=== PATIENT | female | born 1980 | race Caucasian/White ===

== ENCOUNTER → 2021-12-09 14:07 | Outpatient (BNVA) | payer OTHER, SELFPAY | PROVIDERS: PCP Internal Medicine; Visit Provider Psychiatry & Neurology Neurology | DX: G24.3 Spasmodic torticollis (principal); M47.812 Spondylosis without myelopathy or radiculopathy, cervical region | CPT/HCPCS: 99212 ==

== ENCOUNTER → 2022-03-22 13:30 | Outpatient (BNVA) | payer OTHER, SELFPAY | PROVIDERS: PCP Internal Medicine; Visit Provider Psychiatry & Neurology Neurology | DX: G24.3 Spasmodic torticollis (principal) | CPT/HCPCS: 64616; 99211; J0585 ==

== ENCOUNTER → 2022-07-12 15:38 | Outpatient (BNVA) | payer OTHER, SELFPAY | PROVIDERS: PCP Internal Medicine; Visit Provider Psychiatry & Neurology Neurology | DX: G24.3 Spasmodic torticollis (principal) | CPT/HCPCS: 64616; 99211; J0585 ==

== ENCOUNTER → 2022-10-13 07:54 | Outpatient (BNVA) | payer OTHER, SELFPAY | PROVIDERS: PCP Internal Medicine; Visit Provider Psychiatry & Neurology Neurology | DX: G24.3 Spasmodic torticollis (principal) | CPT/HCPCS: 64616; 99211; J0585 ==

== ENCOUNTER → 2023-01-17 08:03 | Outpatient (BNVA) | payer OTHER, SELFPAY | PROVIDERS: PCP Internal Medicine; Visit Provider Psychiatry & Neurology Neurology | DX: G24.3 Spasmodic torticollis (principal) | CPT/HCPCS: 64616; 99211; J0585 ==

== ENCOUNTER → 2023-05-01 07:31 | Outpatient (BNVA) | payer OTHER, SELFPAY | PROVIDERS: PCP Internal Medicine; Visit Provider Psychiatry & Neurology Neurology | DX: G24.3 Spasmodic torticollis (principal) | CPT/HCPCS: 64616; 99211; J0585 ==

== ENCOUNTER 2023-08-02 07:30 | Outpatient (AMB) | payer OTHER, SELFPAY ==
--- NOTE | 2023-08-02 07:33 | A.OFFVIS_ITS ---
Intake Vital Signs 08/02/23 07:35 Weight 148 lb 6 oz BP 102/72 Blood Pressure Location Rt brachial Position Sitting Pulse 78 Pulse Source Pulse Oximeter Pulse Oximetry (%) 97 Oxygen Delivery Method Room Air Intake Visit Reasons: Botox-confirmed Intake Note: Botox Injection Facility Practice Specialist Required: No Allergies Sulfa (Sulfonamide Antibiotics) Allergy (Intermediate, Verified 08/02/23 07:34) hives Medication List - Last Reconciled 08/02/23 by Leena Noble MD albuterol sulfate 90 mcg/actuation 2 puffs inhalation QID fluticasone propionate 50 mcg/actuation 1 spray intranasal DAILY ibuprofen 600 mg PO Q6H PRN methocarbamol 750 mg PO BID norethindrone (contraceptive) 0.35 mg PO DAILY sertraline (Zoloft) 50 mg PO DAILY HPI HPI Comments History of Present Illness Details 42y/o female comes for treatment of her cervical dystonia ? Side effects including spread of toxin effect, dysphagia, breathing difficulties , bronchitis etc was discussed in detail and the patient agreed to the procedure.An informed consent was obtained ??? Botulinum toxin type A 200units -was diluted with 4 cc of normal saline at a concentration of 25 units in 0.5cc saline. Lot number [id number] exp 01/21 ??? Muscles injected ??? Left Splenius - 25 units each ??? left levator 25 units each Right Trapezius 25 units right levator 50 units Right splenius 75 units ? Total used 200 units PFSH Medical History Bruxism Headache GERD (gastroesophageal reflux disease) Surgical History H/O hand surgery S/P cervical spinal fusion Family History Mother COPD (chronic obstructive pulmonary disease) Depression High blood cholesterol Father No problems noted. Social History Household Members: Spouse Alcohol intake: current Alcohol intake frequency: holidays/special occasions only Patient Tobacco Use Status: Never used Tobacco Physical Exam Vital Signs: Last Vital Signs Pulse 78 08/02/23 07:35 BP 102/72 08/02/23 07:35 Pulse Ox 97 08/02/23 07:35 Oxygen Delivery Method Room Air 08/02/23 07:35 Const Orientation/consciousness: patient oriented x3 HEENT Head: Yes normal to inspection and Yes normocephalic Neck Neck: Yes normal visual inspection and Yes other (left laterocollis, left scalene splenius and trapezius tenderness) Neuro General: patient oriented x3, gait normal, moves all extremities and no focal motor deficits Cranial nerves: Yes CN's II-XII intact bilaterally and Yes Normal facial strength present Office Procedures Botulinum toxin Injection 76135 - Dystonia Procedure code (CPT) selection complete Office Meds onabotulinumtoxinA 200 unit solution for injection Performing Provider: Leena Noble MD [place] [facility] [place] [facility] Administered by: Leena Noble MD on 08/02/23 09:01 Dose Route Admin Location Dispensed Lot Number Expiration Date [facility] Refractory Repairer 200 unit IM 200 units [id number] 12/27/25 3347-5311-42 ALLERGAN/BOTOX Comments: see HPI Assessment & Plan Assessment & Plan (1) Spasmodic torticollis: Code(s): G24.3 - Spasmodic torticollis Plan Patient tolerated the procedure well She will call with any side effects Orders: Orders AMB Botulinum toxin Injection Today G24.3 - Spasmodic torticollis Coding Level of Care Code Est Pt Level 1 (45987) Diagnoses Spasmodic torticollis G24.3 CPT Codes Botox Injection - Botox 4: 27642 - Dystonia ([id number])
[2023-08-02 07:35] VITALS: BP 102/72; PULSE 78; O2SAT 97
== END 2023-08-02 07:58 | disposition home or self-care (01) ==
PROVIDERS: PCP Internal Medicine; Visit Provider Psychiatry & Neurology Neurology
DX: G24.3 Spasmodic torticollis (principal)
CPT/HCPCS: 64616

== ENCOUNTER → 2023-08-02 07:30 | Outpatient (BNVA) | payer OTHER, SELFPAY | PROVIDERS: PCP Internal Medicine; Visit Provider Psychiatry & Neurology Neurology | DX: G24.3 Spasmodic torticollis (principal); G47.63 Sleep related bruxism; R51.9 Headache, unspecified | CPT/HCPCS: 64616; 99211; J0585 ==

== ENCOUNTER 2023-11-06 08:04 | Outpatient (AMB) | payer OTHER, SELFPAY ==
--- NOTE | 2023-11-06 08:13 | A.OFFVIS_ITS ---
Intake Vital Signs 11/06/23 08:15 Height 5 ft 2 in Weight 156 lb BMI 28.5 BP 98/60 Blood Pressure Location Rt brachial Respiration 15 Pulse 77 Pulse Source Pulse Oximeter Pulse Oximetry (%) 98 Oxygen Delivery Method Room Air Intake Visit Reasons: Botox - LVM Intake Note: Pt presents tot he office for Botox injections Hospital Librarian Required: No Allergies Sulfa (Sulfonamide Antibiotics) Allergy (Intermediate, Verified 11/06/23 08:13) hives Medication List - Last Reconciled 11/06/23 by Leena Noble MD albuterol sulfate 90 mcg/actuation 2 puffs inhalation QID fluticasone propionate 50 mcg/actuation 1 spray intranasal DAILY ibuprofen 600 mg PO Q6H PRN methocarbamol 750 mg PO BID norethindrone (contraceptive) 0.35 mg PO DAILY omeprazole 20 mg PO DAILY 30 days sertraline (Zoloft) 50 mg PO DAILY sumatriptan succinate 50 - 100 mg orally at onset of headache, may repeat in 2 hrs PRN; max 2 tabs per day or 4 tabs/week (may take with Ibuprofen) 30 days HPI HPI Comments History of Present Illness Details 43y/o female comes for treatment of her cervical dystonia she reports daily migraines for past 2 weeks and increased neck tightness. she was tried on 5 day prednisone taper and imitrex which helped but the pain recurred once she stopped prednisone. ? Side effects including spread of toxin effect, dysphagia, breathing difficulties , bronchitis etc was discussed in detail and the patient agreed to the procedure.An informed consent was obtained ??? Botulinum toxin type A 200units -was diluted with 4 cc of normal saline at a concentration of 25 units in 0.5cc saline. Lot number [id number] exp 01/21 ??? Muscles injected ??? Left Splenius - 25 units each ??? left levator 25 units each left trapezius 25 units Right Trapezius 25 units right levator 25 units Right splenius 75 units ? Total used 200 units PFSH Medical History Bruxism Headache GERD (gastroesophageal reflux disease) Surgical History H/O hand surgery S/P cervical spinal fusion Family History Mother COPD (chronic obstructive pulmonary disease) Depression High blood cholesterol Father No problems noted. Social History Household Members: Spouse Alcohol intake: current Alcohol intake frequency: holidays/special occasions only Patient Tobacco Use Status: Never used Tobacco Physical Exam Vital Signs: Last Vital Signs Pulse 77 11/06/23 08:15 Resp 15 11/06/23 08:15 BP 98/60 11/06/23 08:15 Pulse Ox 98 11/06/23 08:15 Oxygen Delivery Method Room Air 11/06/23 08:15 BMI result Body Mass Index 28.5 Const Orientation/consciousness: patient oriented x3 HEENT Head: Yes normal to inspection and Yes normocephalic Neck Neck: Yes normal visual inspection and Yes other (left laterocollis, left scalene splenius and trapezius tenderness) Neuro General: patient oriented x3, gait normal, moves all extremities and no focal motor deficits Cranial nerves: Yes CN's II-XII intact bilaterally and Yes Normal facial strength present Office Procedures Botulinum toxin Injection 47913 - Dystonia Procedure code (CPT) selection complete Office Meds onabotulinumtoxinA 200 unit solution for injection Performing Provider: Leena Noble MD Performing Location: [facility] [place] [facility] Administered by: Leena Noble MD on 11/06/23 08:45 Dose Route Admin Location Dispensed Lot Number Expiration Date [facility] [place][NOTE 3] Cotton Converter 200 unit IM 200 units [id number] 02/24/26 8040-5298-25 ALLERGAN/BOTOX Comments: see hpi Assessment & Plan Assessment & Plan (1) Spasmodic torticollis: Code(s): G24.3 - Spasmodic torticollis (2) Migraine with aura, intractable, without status migrainosus: Code(s): G43.119 - Migraine with aura, intractable, without status migrainosus Plan Patient tolerated the procedure well She will call with any side effects I will trial her on 9 day steroid taper Prednisone 20mg 3 tabs qd for 3 days 2 tabs qd for 3 days then 1 tabs qd for 3days discussed side effects continue imitrex 100mg as needed PT for neck Orders: Orders PT Evaluation and Treatment Today G24.3 - Spasmodic torticollis AMB Botulinum toxin Injection Today G24.3 - Spasmodic torticollis Medications: New prednisone 3 tabs qd X3 days then 2 tabs qd X 3 days 1tab qd for 3 days orally daily; 20 tabs 0RF Coding Level of Care Code Est Pt Level 3 (57428) Diagnoses Spasmodic torticollis G24.3 Migraine with aura, intractable, without status migrainosus G43.119 CPT Codes Botox Injection - Botox 4: 65483 - Dystonia ([id number])
[2023-11-06 08:15] VITALS: BP 98/60; PULSE 77; RESP 15; O2SAT 98; BMI 28.5
== END 2023-11-06 08:37 | disposition home or self-care (01) ==
PROVIDERS: PCP Internal Medicine; Visit Provider Psychiatry & Neurology Neurology
DX: G24.3 Spasmodic torticollis (principal); G43.119 Migraine with aura, intractable, without status migrainosus
CPT/HCPCS: 64616; 99213

== ENCOUNTER → 2023-11-06 08:04 | Outpatient (BNVA) | payer OTHER, SELFPAY | PROVIDERS: PCP Internal Medicine; Visit Provider Psychiatry & Neurology Neurology | DX: G24.3 Spasmodic torticollis (principal); G43.119 Migraine with aura, intractable, without status migrainosus | CPT/HCPCS: 64616; 99212; J0585 ==

== ENCOUNTER 2024-02-06 07:38 | Outpatient (AMB) | payer OTHER, SELFPAY ==
[2024-02-06 07:45] VITALS: BP 114/76; PULSE 84; RESP 16; O2SAT 97; BMI 29.9
--- NOTE | 2024-02-06 07:45 | A.OFFVIS_ITS ---
Intake Vital Signs 02/06/24 07:45 Height 5 ft 2 in Weight 163 lb 8 oz BMI 29.9 BP 114/76 Blood Pressure Location Rt brachial Position Sitting Respiration 16 Pulse 84 Pulse Source Pulse Oximeter Pulse Oximetry (%) 97 Oxygen Delivery Method Room Air Intake Visit Reasons: Botox-LVM Intake Note: Pt presents to the office for her Botox injections. Purchasing Department Clerk Required: No Allergies Sulfa (Sulfonamide Antibiotics) Allergy (Intermediate, Verified 02/06/24 07:45) hives Medication List - Last Reconciled 02/06/24 by Leena Noble MD albuterol sulfate 90 mcg/actuation 2 puffs inhalation QID fluticasone propionate 50 mcg/actuation 1 spray intranasal DAILY ibuprofen 600 mg PO Q6H PRN methocarbamol 750 mg PO BID norethindrone (contraceptive) 0.35 mg PO DAILY omeprazole 20 mg PO DAILY 30 days prednisone 3 tabs qd X3 days then 2 tabs qd X 3 days 1tab qd for 3 days orally daily; sertraline (Zoloft) 50 mg PO DAILY sumatriptan succinate 50 - 100 mg orally at onset of headache, may repeat in 2 hrs PRN; max 2 tabs per day or 4 tabs/week (may take with Ibuprofen) 30 days HPI HPI Comments History of Present Illness Details 43y/o female comes for treatment of her cervical dystonia she reports daily migraines for past 2 weeks and increased neck tightness. she was tried on 5 day prednisone taper and imitrex which helped but the pain recurred once she stopped prednisone. ? Side effects including spread of toxin effect, dysphagia, breathing difficulties , bronchitis etc was discussed in detail and the patient agreed to the procedure.An informed consent was obtained ??? Botulinum toxin type A 200units -was diluted with 4 cc of normal saline at a concentration of 25 units in 0.5cc saline. Lot number [id number] exp 05/21 ??? Muscles injected ??? Left Splenius - 25 units each ??? left levator 25 units each left trapezius 25 units Right Trapezius 25 units right levator 25 units Right splenius 75 units ? Total used 200 units PFSH Medical History Bruxism Headache GERD (gastroesophageal reflux disease) Surgical History H/O hand surgery S/P cervical spinal fusion Family History Mother COPD (chronic obstructive pulmonary disease) Depression High blood cholesterol Father No problems noted. Social History Household Members: Spouse Alcohol intake: current Alcohol intake frequency: holidays/special occasions only Patient Tobacco Use Status: Never used Tobacco Physical Exam Vital Signs: Last Vital Signs Pulse 84 02/06/24 07:45 Resp 16 02/06/24 07:45 BP 114/76 02/06/24 07:45 Pulse Ox 97 02/06/24 07:45 Oxygen Delivery Method Room Air 02/06/24 07:45 BMI result Body Mass Index 29.9 Const Orientation/consciousness: patient oriented x3 HEENT Head: Yes normal to inspection and Yes normocephalic Neck Neck: Yes normal visual inspection and Yes other (left laterocollis, left scalene splenius and trapezius tenderness) Neuro General: patient oriented x3, gait normal, moves all extremities and no focal motor deficits Cranial nerves: Yes CN's II-XII intact bilaterally and Yes Normal facial strength present Office Procedures Botulinum toxin Injection 67986 - Dystonia Procedure code (CPT) selection complete Office Meds onabotulinumtoxinA 200 unit solution for injection Performing Provider: Leena Noble MD Performing Location: [facility] Administered by: Leena Noble MD on 02/06/24 08:11 Dose Route Admin Location Dispensed Lot Number Expiration Date [facility] Telemarketing Sales Representative 200 unit IM 200 units [id number] 04/26/26 3789-0933-56 ALLERGAN/BOTOX Comments: see HPI Assessment & Plan Assessment & Plan (1) Spasmodic torticollis: Code(s): G24.3 - Spasmodic torticollis (2) Migraine with aura, intractable, without status migrainosus: Code(s): G43.119 - Migraine with aura, intractable, without status migrainosus Plan Patient tolerated the procedure well She will call with any side effects discussed side effects continue imitrex 100mg as needed PT for neck Orders: Orders AMB Botulinum toxin Injection Today G24.3 - Spasmodic torticollis Coding Level of Care Code Est Pt Level 1 (40771) Diagnoses Spasmodic torticollis G24.3 Migraine with aura, intractable, without status migrainosus G43.119 CPT Codes Botox Injection - Botox 4: 74183 - Dystonia ([id number])
== END 2024-02-06 08:16 | disposition home or self-care (01) ==
PROVIDERS: PCP Internal Medicine; Visit Provider Psychiatry & Neurology Neurology
DX: G24.3 Spasmodic torticollis (principal)
CPT/HCPCS: 64616

== ENCOUNTER → 2024-02-06 07:38 | Outpatient (BNVA) | payer OTHER, SELFPAY | PROVIDERS: PCP Internal Medicine; Visit Provider Psychiatry & Neurology Neurology | DX: G24.3 Spasmodic torticollis (principal); G43.119 Migraine with aura, intractable, without status migrainosus; Z79.899 Other long term (current) drug therapy | CPT/HCPCS: 64616; 99211; J0585 ==

== ENCOUNTER 2024-05-12 13:52 | Outpatient (AMB) | payer OTHER, SELFPAY ==
--- NOTE | 2024-05-12 14:01 | A.OFFVIS_ITS ---
Vital Signs 05/12/24 14:02 Height 5 ft 2 in Weight 153 lb 4 oz BMI 28.0 BP 102/62 Blood Pressure Location Rt brachial Position Sitting Respiration 16 Pulse 92 Pulse Source Pulse Oximeter Pulse Oximetry (%) 97 Oxygen Delivery Method Room Air Intake Visit Reasons: Botox - LVM w/add Intake Note: Pt presents to the office for Botox injections. Advertising Sales Agent Required: No Allergies Sulfa (Sulfonamide Antibiotics) Allergy (Intermediate, Verified 05/12/24 14:02) hives HPI Comments Details: 43y/o female comes for treatment of her cervical dystonia she reports daily migraines for past 2 weeks and increased neck tightness. she was tried on 5 day prednisone taper and imitrex which helped but the pain recurred once she stopped prednisone. ? Side effects including spread of toxin effect, dysphagia, breathing difficulties , bronchitis etc was discussed in detail and the patient agreed to the procedure.An informed consent was obtained ??? Botulinum toxin type A 200units -was diluted with 4 cc of normal saline at a concentration of 25 units in 0.5cc saline. Lot number [id number] exp 05/21 ??? Muscles injected ??? Left Splenius - 25 units each ??? left levator 25 units each left trapezius 25 units Right Trapezius 25 units right levator 25 units Right splenius 75 units ? Total used [address] [facility] Medical History Bruxism Headache GERD (gastroesophageal reflux disease) Surgical History H/O hand surgery S/P cervical spinal fusion Family History Mother COPD (chronic obstructive pulmonary disease) Depression High blood cholesterol Father No problems noted. Social History Household Members: Spouse Alcohol intake: current Alcohol intake frequency: holidays/special occasions only Patient Tobacco Use Status: Never used Tobacco Physical Exam Vital Signs: Last Vital Signs Pulse 92 05/12/24 14:02 Resp 16 05/12/24 14:02 BP 102/62 05/12/24 14:02 Pulse Ox 97 05/12/24 14:02 Oxygen Delivery Method Room Air 05/12/24 14:02 BMI result Body Mass Index 28.0 Const Orientation/consciousness: patient oriented x3 HEENT Head: Yes normal to inspection and Yes normocephalic Neck Neck: Yes normal visual inspection and Yes other (left laterocollis, left scalene splenius and trapezius tenderness) Neuro General: patient oriented x3, gait normal, moves all extremities and no focal motor deficits Cranial nerves: Yes CN's II-XII intact bilaterally and Yes Normal facial strength present Office Procedures Botulinum toxin Injection 76992 - Dystonia Procedure code (CPT) selection complete Office Meds onabotulinumtoxinA 200 unit solution for injection Performing Provider: Leena Noble MD Performing Location: [facility] [place] [facility] Administered by: Leena Noble MD on 05/12/24 14:27 Dose Route Admin Location Dispensed Lot Number Expiration Date [facility] Professor Of Social Work 200 unit IM 200 units [id number] 04/26/26 5415-4899-14 ALLERGAN/BOTOX Comments: see HPI Assessment & Plan Assessment & Plan (1) Spasmodic torticollis: Code(s): G24.3 - Spasmodic torticollis Category: Medical Plan Patient tolerated the procedure well She will call with any side effects WIll refer to pain management for neck pain discussed side effects continue imitrex 100mg as needed Orders: Orders AMB Botulinum toxin Injection Today G24.3 - Spasmodic torticollis Referrals Pain Management Referral G24.3 - Spasmodic torticollis, M47.812 - Spondylosis without myelopathy or radiculopathy, cervical region Medications: New onabotulinumtoxinA 200 units IM ONCE 1 ea 0RF spasmodic torticollis G24.3 - Spasmodic torticollis Coding Level of Care Code Est Pt Level 1 (79387) Diagnoses Spasmodic torticollis G24.3 CPT Codes Botox Injection - Botox 4: 10896 - Dystonia ([id number])
[2024-05-12 14:02] VITALS: BP 102/62; PULSE 92; RESP 16; O2SAT 97; BMI 28.0
== END 2024-05-12 14:19 | disposition home or self-care (01) ==
PROVIDERS: PCP Internal Medicine; Visit Provider Psychiatry & Neurology Neurology
DX: G24.3 Spasmodic torticollis (principal)
CPT/HCPCS: 64616

== ENCOUNTER → 2024-05-12 13:52 | Outpatient (BNVA) | payer OTHER, SELFPAY | PROVIDERS: PCP Internal Medicine; Visit Provider Psychiatry & Neurology Neurology | DX: G24.3 Spasmodic torticollis (principal) | CPT/HCPCS: 64616; 99211; J0585 ==

== ENCOUNTER 2024-08-18 13:12 | Outpatient (AMB) | payer OTHER, SELFPAY ==
--- NOTE | 2024-08-18 13:31 | MHC.OFFVIS ---
Vital Signs 08/18/24 13:35 Height 5 ft 2 in Weight 136 lb 6 oz BMI 24.9 BP 102/68 Blood Pressure Location Rt brachial Position Sitting Respiration 16 Pulse 104 H Pulse Source Pulse Oximeter Pulse Oximetry (%) 99 Oxygen Delivery Method Room Air Intake Visit Reasons: BOTOX Intake Note: Pt presents to the office for Botox injections for spasmodic torticollis. Tarp Repairer Required: No Allergies Sulfa (Sulfonamide Antibiotics) Allergy (Intermediate, Verified 08/18/24 13:33) hives Medication List - Last Reconciled 08/18/24 by Leena Noble MD albuterol sulfate 90 mcg/actuation 2 puffs inhalation QID fluticasone propionate 50 mcg/actuation 1 spray intranasal DAILY ibuprofen 600 mg PO Q6H PRN methocarbamol 750 mg PO BID norethindrone (contraceptive) 0.35 mg PO DAILY omeprazole 20 mg PO DAILY 30 days prednisone 3 tabs qd X3 days then 2 tabs qd X 3 days 1tab qd for 3 days orally daily; sertraline (Zoloft) 50 mg PO DAILY sumatriptan succinate 50 - 100 mg orally at onset of headache, may repeat in 2 hrs PRN; max 2 tabs per day or 4 tabs/week (may take with Ibuprofen) 30 days HPI Comments Details: 44y/o female comes for treatment of her cervical dystonia ? Side effects including spread of toxin effect, dysphagia, breathing difficulties , bronchitis etc was discussed in detail and the patient agreed to the procedure.An informed consent was obtained ??? Botulinum toxin type A 200units -was diluted with 4 cc of normal saline at a concentration of 25 units in 0.5cc saline. Lot number [id number] exp 11/20 ??? Muscles injected ??? Left Splenius - 25 units each ??? left levator 25 units each left trapezius 50units Right Trapezius 25 units right levator 25 units Right splenius 50 units ? Total used 200 units [facility] Medical History Bruxism Headache GERD (gastroesophageal reflux disease) Surgical History H/O hand surgery S/P cervical spinal fusion Family History Mother COPD (chronic obstructive pulmonary disease) Depression High blood cholesterol Father No problems noted. Social History Household Members: Spouse Alcohol intake: current Alcohol intake frequency: holidays/special occasions only Patient Tobacco Use Status: Never used Tobacco Physical Exam Vital Signs: Last Vital Signs Pulse 104 H 08/18/24 13:35 Resp 16 08/18/24 13:35 BP 102/68 08/18/24 13:35 Pulse Ox 99 08/18/24 13:35 Oxygen Delivery Method Room Air 08/18/24 13:35 BMI result Body Mass Index 24.9 Const Orientation/consciousness: patient oriented x3 HEENT Head: Yes normal to inspection and Yes normocephalic Neck Neck: Yes normal visual inspection and Yes other (left laterocollis, left scalene splenius and trapezius tenderness) Neuro General: patient oriented x3, gait normal, moves all extremities and no focal motor deficits Cranial nerves: Yes CN's II-XII intact bilaterally and Yes Normal facial strength present Office Procedures Botulinum toxin Injection 01155 - Dystonia Procedure code (CPT) selection complete Office Meds onabotulinumtoxinA 200 unit solution for injection Performing Provider: Leena Noble MD Performing Location: [facility] – [place] [facility] Administered by: Leena Noble MD on 08/18/24 13:57 Dose Route Admin Location Dispensed Lot Number Expiration Date [facility] Chemical Dependency Therapist 200 unit subcut 200 units [id number] 10/26/26 4669-0018-98 ALLERGAN/BOTOX Comments: see HPI Assessment & Plan Assessment & Plan (1) Spasmodic torticollis: Code(s): G24.3 - Spasmodic torticollis Category: Medical Plan Patient tolerated the procedure well She will call with any side effects WIll refer to pain management for neck pain discussed side effects continue imitrex 100mg as needed Orders: Orders AMB Botulinum toxin Injection Today G24.3 - Spasmodic torticollis Medications: New onabotulinumtoxinA 200 units subcut ONCE 1 ea 0RF Dystonia G24.3 - Spasmodic torticollis Coding Level of Care Code Est Pt Level 1 (25762) Diagnoses Spasmodic torticollis G24.3 CPT Codes Botox Injection - Botox 4: 57182 - Dystonia ([id number])
[2024-08-18 13:35] VITALS: BP 102/68; PULSE 104; RESP 16; O2SAT 99; BMI 24.9
== END 2024-08-18 13:52 | disposition home or self-care (01) ==
PROVIDERS: PCP Internal Medicine; Visit Provider Psychiatry & Neurology Neurology
DX: G24.3 Spasmodic torticollis (principal)
CPT/HCPCS: 64616

== ENCOUNTER → 2024-08-18 13:12 | Outpatient (BNVA) | payer OTHER, SELFPAY | PROVIDERS: PCP Internal Medicine; Visit Provider Psychiatry & Neurology Neurology | DX: G24.3 Spasmodic torticollis (principal) | CPT/HCPCS: 64616; 99211; J0585 ==

== ENCOUNTER 2024-12-02 14:43 | Outpatient (AMB) | payer OTHER, SELFPAY ==
[2024-12-02 14:47] VITALS: BP 96/58; PULSE 98; O2SAT 100; BMI 24.7
--- NOTE | 2024-12-02 14:47 | A.OFFVIS_ITS ---
Vital Signs 12/02/24 14:47 Height 5 ft 2 in Weight 135 lb 4 oz BMI 24.7 BP 96/58 L Blood Pressure Location Rt brachial Position Sitting Pulse 98 Pulse Source Pulse Oximeter Pulse Oximetry (%) 100 Oxygen Delivery Method Room Air Intake Visit Reasons: Botox Intake Note: Patient needs a refill on her methocarbamol 750 mg. Tuber Helper Required: No Accompanied by: Self / Same As Patient Allergies Sulfa (Sulfonamide Antibiotics) Allergy (Intermediate, Verified 12/02/24 14:50) hives Medication List - Last Reconciled 12/02/24 by Leena Noble MD albuterol sulfate 90 mcg/actuation 2 puffs inhalation QID fluticasone propionate 50 mcg/actuation 1 spray intranasal DAILY ibuprofen 600 mg PO Q6H PRN methocarbamol 750 mg PO BID norethindrone (contraceptive) 0.35 mg PO DAILY omeprazole 20 mg PO DAILY 30 days prednisone 3 tabs qd X3 days then 2 tabs qd X 3 days 1tab qd for 3 days orally daily; sertraline (Zoloft) 50 mg PO DAILY sumatriptan succinate 50 - 100 mg orally at onset of headache, may repeat in 2 hrs PRN; max 2 tabs per day or 4 tabs/week (may take with Ibuprofen) 30 days Do you need a note to return to daycare/school/sports/work: No HPI Comments Details: 44y/o female comes for treatment of her cervical dystonia ? Side effects including spread of toxin effect, dysphagia, breathing difficulties , bronchitis etc was discussed in detail and the patient agreed to the procedure.An informed consent was obtained ??? Botulinum toxin type A 300units -was diluted with 4 cc of normal saline at a concentration of 25 units in 0.5cc saline. Lot number [id number] exp 08/21- 200 units Lot number- [id number] exp- 01/2027- 100 units ??? Muscles injected ??? Left Splenius - 25 units each ??? left levator 25 units each left trapezius 50units Right Trapezius 50 units right levator 50 units Right splenius 50 units ? Total used 200 units PFSH Medical History Bruxism Headache GERD (gastroesophageal reflux disease) Surgical History H/O hand surgery S/P cervical spinal fusion Family History Mother COPD (chronic obstructive pulmonary disease) Depression High blood cholesterol Father No problems noted. Social History Household Members: Spouse Alcohol intake: current Alcohol intake frequency: holidays/special occasions only Patient Tobacco Use Status: Never used Tobacco Physical Exam Vital Signs: Last Vital Signs Pulse 98 12/02/24 14:47 BP 96/58 L 12/02/24 14:47 Pulse Ox 100 12/02/24 14:47 Oxygen Delivery Method Room Air 12/02/24 14:47 BMI result Body Mass Index 24.7 Const Orientation/consciousness: patient oriented x3 HEENT Head: Yes normal to inspection and Yes normocephalic Neck Neck: Yes normal visual inspection and Yes other (left laterocollis, left scalene splenius and trapezius tenderness) Neuro General: patient oriented x3, gait normal, moves all extremities and no focal motor deficits Cranial nerves: Yes CN's II-XII intact bilaterally and Yes Normal facial strength present Office Procedures Botulinum toxin Injection 80977 - Dystonia Procedure code (CPT) selection complete Office Meds onabotulinumtoxinA 100 unit solution for injection Performing Provider: Leena Noble MD Performing Location: [facility] Administered by: Leena Noble MD on 12/02/24 15:18 Dose Route Admin Location Dispensed Lot Number Expiration Date [facility] [employer] 100 unit IM 100 units [id number] ALLERGAN/BOTOX Comments: see hpi onabotulinumtoxinA 200 unit solution for injection Performing Provider: Leena Noble MD Performing Location: [facility] Administered by: Leena Noble MD on 12/02/24 15:18 Dose Route Admin Location Dispensed Lot Number Expiration Date [place] [employer] 150 unit IM 200 units [id number] ALLERGAN/BOTOX Comments: see HPI Assessment & Plan Assessment & Plan (1) Spasmodic torticollis: Code(s): G24.3 - Spasmodic torticollis Category: Medical Plan Patient tolerated the procedure well She will call with any side effects discussed side effects continue imitrex 100mg as needed Orders: Orders AMB Botulinum toxin Injection Today G24.3 - Spasmodic torticollis Medications: New onabotulinumtoxinA 200 units IM ONCE 1 ea 0RF torticollis G24.3 - Spasmodic torticollis onabotulinumtoxinA 100 units IM ONCE 1 ea 0RF torticollis G24.3 - Spasmodic torticollis Coding Level of Care Code Est Pt Level 1 (23985) Diagnoses Spasmodic torticollis G24.3 CPT Codes Botox Injection - Botox 4: 86852 - Dystonia ([id number])
== END 2024-12-02 15:29 | disposition home or self-care (01) ==
PROVIDERS: PCP Internal Medicine; Visit Provider Psychiatry & Neurology Neurology
DX: G24.3 Spasmodic torticollis (principal)
CPT/HCPCS: 64616

== ENCOUNTER → 2024-12-02 14:43 | Outpatient (BNVA) | payer OTHER, SELFPAY | PROVIDERS: PCP Internal Medicine; Visit Provider Psychiatry & Neurology Neurology | DX: G24.3 Spasmodic torticollis (principal) | CPT/HCPCS: 64616; 99211; J0585 ==

== ENCOUNTER 2025-03-10 11:50 | Outpatient (AMB) | payer OTHER, SELFPAY ==
--- NOTE | 2025-03-10 11:52 | A.OFFVIS_ITS ---
Vital Signs 03/10/25 11:53 Height 5 ft 2 in Weight 135 lb BMI 24.7 Intake Visit Reasons: BOTOX Intake Note: Patient presents for botox injection. practice supplied Allergies Sulfa (Sulfonamide Antibiotics) Allergy (Intermediate, Verified 03/10/25 11:54) hives HPI Comments Details: 44y/o female comes for treatment of her cervical dystonia ? Side effects including spread of toxin effect, dysphagia, breathing difficulties , bronchitis etc was discussed in detail and the patient agreed to the procedure.An informed consent was obtained ??? Botulinum toxin type A 200units -was diluted with 4 cc of normal saline at a concentration of 25 units in 0.5cc saline. Lot number [id number]- 200 units ??? Muscles injected ??Aurelio? Splenius - 25 units each ??? Aurelio levator 50 units each Aurelio trapezius 25units ? Total used 200 units PFS Medical History Bruxism Headache GERD (gastroesophageal reflux disease) Surgical History H/O hand surgery S/P cervical spinal fusion Family History Mother COPD (chronic obstructive pulmonary disease) Depression High blood cholesterol Father No problems noted. Social History Household Members: Spouse Alcohol intake: current Alcohol intake frequency: holidays/special occasions only Patient Tobacco Use Status: Never used Tobacco Physical Exam Vital Signs: BMI result Body Mass Index 24.7 Const Orientation/consciousness: patient oriented x3 HEENT Head: Yes normal to inspection and Yes normocephalic Neck Neck: Yes normal visual inspection and Yes other (left laterocollis, left scalene splenius and trapezius tenderness) Neuro General: patient oriented x3, gait normal, moves all extremities and no focal m otor deficits Cranial nerves: Yes CN's II-XII intact bilaterally and Yes Normal facial strength present Office Procedures Botulinum toxin Injection 47545 - Migraine Procedure code (CPT) selection complete Office Meds onabotulinumtoxinA 200 unit solution for injection Performing Provider: Leena Noble MD Performing Location: [facility] [place] [facility] Administered by: Leena Noble MD on 03/10/25 12:44 Dose Route Admin Location Dispensed Lot Number Expiration Date [facility] [employer] 200 unit IM 200 units [id number] ALLERGAN/BOTOX Comments: see hpi Assessment & Plan Assessment & Plan (1) Spasmodic torticollis: Code(s): G24.3 - Spasmodic torticollis Category: Medical Plan Patient tolerated the procedure well She will call with any side effects discussed side effects continue imitrex 100mg as needed Orders: Orders PT Evaluation and Treatment Today G24.3 - Spasmodic torticollis AMB Botulinum toxin Injection Today G24.3 - Spasmodic torticollis Medications: New onabotulinumtoxinA 200 units IM ONCE 1 ea 0RF spasmodic torticollis G24.3 - Spasmodic torticollis Coding Level of Care Code Est Pt Level 1 (08940) Diagnoses Spasmodic torticollis G24.3 CPT Codes Botox Injection - Botox 3: 38889 - Migraine ([id number])
[2025-03-10 11:53] VITALS: BMI 24.7
--- OUTSIDE RECORDS SUMMARY | 2025-03-10 14:38 | XMS_ITS | Clinical Summary ---
Author Organization [facility] Address [address] [place] [address] Care Team Providers Care Chief Jailer Name Role Phone Deanne Hart MD Primary Care Provider [phone] Allergies Active Allergy Reactions Criticality Noted Date Comments Sulfa Antibiotics 06/30/2020 Medications Medication Sig Dispensed Refills Start Date End Date Status sertraline (ZOLOFT) 50 MG tablet 0 04/22/2022 Active methocarbamol (ROBAXIN) 750 MG tablet Take 750 mg by mouth 2 (two) times a day. 0 04/27/2022 Active Norlyda 0.35 MG tablet Take 1 tablet by mouth daily. 0 02/27/2022 Active Family History Medical History Relation Name Comments Hyperlipidemia Mother Relation Name Status Comments Mother Social History Tobacco Use Types Packs/Day Years Used Date Smoking Tobacco: Never Smokeless Tobacco: Never Alcohol Use Standard Drinks/Week Comments Yes 3 (1 standard drink = 0.6 oz pur e alcohol) Sex and Gender Information Value Date Recorded Sex Assigned at Not on file Gender Identity Not on file Sexual Orientation Not on file Job Start Date Occupation Industry Not on file Not on file Not on file Last Filed Vital Signs Vital Sign Reading Time Taken Comments Blood Pressure - - Pulse - - Temperature - - Respiratory Rate - - Oxygen Saturation - - Inhaled Oxygen Concentration - - Weight 72.1 kg (159 lb) 05/16/2022 3:37 PM EDT Height 157.5 cm (5' 2 ) 05/16/2022 3:37 PM EDT Body Mass Index 29.08 05/16/2022 3:37 PM EDT Plan of Treatment Health Maintenance Due Date Last Done Comments Hepatitis B Vaccines (1 of 3 - 3-dose series) 1980 Hepatitis C Screening 1980 COVID-19 Vaccine (#1) 02/02/1981 Depression Screening 1992 BMI Counseling 1998 Preventative Health Evaluation 1998 Cervical Cancer Screening (Pap Smear) 2001 DTap / Tdap / Td (2 - Td or Tdap) 04/15/2019 04/15/2009 Influenza Vaccine (#1) 2024 3, 08/16/2010, 12/18/2007 Pneumococcal Vaccine Aged Out No long er eligible based on patient's age to complete this topic RSV Ped < 20 months Aged Out No longe r eligible based on patient's age to complete this topic Care Teams Chief Jailer Relationship Specialty Start Date End Date Deanne Hart MD [address] [phone] PCP - General Internal Medicine 05/08/22
--- OUTSIDE RECORDS SUMMARY | 2025-03-10 14:38 | XMS_ITS ---
Author Name [facility] Organization Unknown Results Test Name/Text Value Interpretation Date Range Source Bacteria Ur Cult SEE NOTE Normal [id number] [facility] History of Medication Use Medication Directions Dispensed Refills Start Date End Date Stat us albuterol (PROVENTIL HFA; VENTOLIN HFA) 108 (90 Base) MCG/ACT inhaler Inhale 2 puffs 4 times daily (every 6 hours) as needed for wheezing. 11/06/2022 active nitrofurantoin monohydrate (MACROBID) 100 MG capsule Take 1 capsule (100 mg total) by mouth 2 (two) times a day with meals. Dispense MACROBID. 11/14/2024 11/20/2024 active sertraline (ZOLOFT) 50 MG tablet 09/10/2022 active Problems Problem Status Onset Date Problem Type Date of Resoluti on Source Dysuria active EncounterDiagnosisAct [facility] Acute cystitis without hematuria [facility] En[facility] Encounter Type Encounter Reason Primary Diagnosis Location Date Ambulatory Dysuria Dysuria [facility] 11/14/2024 Ambulatory Acute pharyngiti s, unspecified [facility] 06/10/2023 Ambulatory Influenza due to unidentified influenza virus with other respiratory manifestations [facility] 11/06/2022 Care Team Organization Name Specialty Phone Email Start Date End Da te Pulsar Joan Hart Primary [facility] 06/10/2023 3 P[facility] JOAN HART Primary Care 06/10/2023 5 Pulsar NO PCP Primary Care 11/06/2022 11/06/2022 [facility] PCP,No Primary Care 11/06/2022 02/11/2025
--- OUTSIDE RECORDS SUMMARY | 2025-03-10 14:38 | XMS_ITS | Clinical Summary ---
Author Organization [facility] Address [address] [place] [address] Care Team Providers Care Training Officer Name Role Phone Deanne Hart MD Primary Care Provider [phone] Allergies Active Allergy Reactions Criticality Noted Date Comments Prednisone Myalgia/Myositis/Art hralg ia/Arthritis Medium 02/18/2015 Sulfa Antibiotics Hives Medium 06/30/2020 Sulfamethoxazole-Trimethopri m Hives High 01/21/2013 Medications Medication Sig Dispensed Refills Start Date End Date Status sertraline (ZOLOFT) 50 MG tablet 09/10/2022 Active norethindrone (MICRONOR) 0.35 MG tablet Take 1 tablet by mouth daily. 08/21/2022 Active albuterol (PROVENTIL HFA; VENTOLIN HFA) 108 (90 Base) MCG/ACT inhalerIndications:Inf luenza Inhale 2 puffs 4 times daily (every 6 hours) as needed for wheezing. 1 each 11/06/2022 Active Active Problems No known active problems Social History Tobacco Use Types Packs/Day Years Used Date Smoking Tobacco: Never Assessed Sex and Gender Information Value Date Recorded Sex Assigned at Female 06/10/2023 3:44 PM EDT Gender Identity Female 06/10/2023 3:44 PM EDT Sexual Orientation Heterosexual (straight) 06/10 3:44 PM EDT Last Filed Vital Signs Vital Sign Reading Time Taken Comments Blood Pressure 115/84 11/14/2024 4:00 PM EST Pulse 86 11/14/2024 4:00 PM EST Temperature 36.8 ??C (98.2 ??F) 11/14/2024 4:00 PM ES T Respiratory Rate 18 11/14/2024 4:00 PM EST Oxygen Saturation 96% 11/14/2024 4:00 PM EST Inhaled Oxygen Concentration - - Weight 59 kg (130 lb) 11/14/2024 4:00 PM EST Height 157.5 cm (5' 2 ) 11/14/2024 4:00 PM EST Body Mass Index 23.78 11/14/2024 4:00 PM EST Plan of Treatment Health Maintenance Due Date Last Done Comments Hepatitis C Virus Screening 1980 HIV Screening 1993 DTaP/Tdap/Td Vaccines (1 - Tdap) 1999 Hepatitis B Vaccines (1 of 3 - 19+ 3-dose series) 1999 Pap Smear (Ages 21-65) 2001 Mammogram 2020 Influenza Vaccine 06/26/2024 09/12/2022, , 09/03/2020, Additional history exists COVID-19 Vaccine (2023- season) 2024 HPV Vaccines Aged Out No longer eligi ble based on patient's age to complete this topic Pneumococcal Vaccine: Pediatric (0-5 Years) and At-Risk Patients (6 to 49 Years) Aged Out No longer eligible based on patient's age to complete this topic Care Teams Training Officer Relationship Specialty Start Date End Date Deanne Hart MD [address] [place] [id number] PCP - General 05/26/23
--- OUTSIDE RECORDS SUMMARY | 2025-03-10 14:38 | XMS_ITS | Clinical Summary ---
Author Organization 175 [facility] Address [address] [place] [address] Phone Care Team Providers Care Air Traffic Control Equipment Repairer Name Role Phone Deanne Hart MD Primary Care Provider [phone] Allergies Active Allergy Reactions Criticality Noted Date Comments Prednisone Pain Medium 02/18/2015 Sulfa (Sulfonamide Antibiotics) 08/03/2020 Sulfamethoxazole-Trimethoprim Hives High 2012 Medications methocarbamoL (ROBAXIN) 750 mg tablet Take 1 Tablet by mouth at bedtime as needed (muscle spasms). 2 Active ibuprofen (ADVIL,MOTRIN) 800 mg tablet Take 1 Tablet by mouth every 8 hours as needed for Pain (Take with food.) for up to 30 days. 3 Active fluticasone propionate (FLONASE) 50 mcg/actuation nasal spray SPRAY ONCE IN EACH NOSTRIL DAILY 5 Active albuterol HFA (PROAIR HFA ; PROVENTIL HFA ; VENTOLIN HFA) 90 mcg/actuation inhaler Inhale 2 Puffs into the lungs every 4 hours as needed for Cough or Wheezing. 3 Active psyllium (METAMUCIL) 3.4 gram packetIndications: constipation,irrit able bowel syndrome Take 1 packet by mouth 1 (one) time each day. 30 packet 4 Active senna 8.6 mg tabletIndications: Slow transit constipation Take 1 tablet (8.6 mg total) by mouth 1 (one) time each day. 30 each 11 4 10/13/20 25 Active norethindrone (Chelsey) 0.35 mg tabletIndications: Oral contraceptive use Take 1 tablet (0.35 mg total) by mouth 1 (one) time each day. 84 tablet 3 4 Active gabapentin (NEURONTIN) 100 mg capsuleIndications :Iliopsoas bursitis of right hip Take 1 capsule (100 mg total) by mouth at bedtime as needed (pain). 30 each 3 4 Active Active Problems Problem Noted Date Diagnosed Date Rupture of ulnar collateral ligament of thumb, right, initial encounter 02/06/2023 Attention deficit hyperactivity disorder (ADHD) 08/28/2022 Snoring 12/09/2021 Overview (09/01/2024): 11/2021 Home Sleep Study did not reveal sleep apnea or nocturnal hypoxia. Sacroiliitis ([facility] V24) 10/14/2020 Iliopsoas bursitis of right hip 06/30/2020 Degenerative joint disease of cervical spine External hemorrhoids 03/20/2016 Anxiety 02/14/2014 Chronic neck pain 12/05/2013 Herniated cervical intervertebral disc 0 Overview (09/01/2024): MRI 05/04: Bulging of the C4-5 disc. Bulging of C5-6 disc with tiny central and left lateral herniations of the disc. Postsurgical changes at the C6-7 level. Esophageal reflux 04/02/2007 Asthma 2006 Allergic rhinitis 2006 Immunizations Name Administration Dates Next Due H1N1 Inj Preservative Free 02/07/2010 HPV, Quadrivalent 07/23/2007,05/16/2007 Influenza trivalent, with pr eservative (Fluzone; Afluria) 6mo and older 08/18/2013,08/16/2010,12/18/2007 Measles 01/28/2009 Mumps 01/28/2009 Rubella 01/28/2009 Td Tetanus diptheria (Tdvax) 7yo and older 05/26 Tdap Tetanus diptheria acell ular pertussis (Boostrix; Adacel) 7yo and older 04/15/2009 Surgical History Surgery Date Site/Laterality Comments CERVICAL LAMINECTOMY 2007 PROCEDURE: HISTORICAL CERV LAMINECTOMY; COMMENT: C6C7 Medical History Medical History Date Comments Esophageal reflux 04/02/2007 DX:Esophageal reflux Allergic rhinitis 2006 DX:Allergic rh initis Asthma 2006 DX:Asthma History of abnormal cervical Pap smear 02/17/2010 DX:History of abnormal cervical Pap smear; COMMENT: 2012 no hpv; 02/02 with HPV Herniated cervical intervertebral disc 08/18/2010 DX:Herniated cervical intervertebral disc; COMMENT: MRI 05/04: Bulging of the C4-5 disc. Bulging of C5-6 disc with tiny central and left lateral herniations of the disc. Postsurgical changes at the C6-7 level. External hemorrhoids 03/20/2016 DX:External hemorrhoids Degenerative joint disease o f cervical spine 03/20/2016 DX:Degenerative joint diseas e of cervical spine Chronic neck pain 12/05/2013 DX:Chronic nec k pain Anxiety 02/14/2014 DX:Anxiety Family History Medical History Relation Name Comments Multiple sclerosis Aunt 1 maternal Suicide Attempts Father Diabetes Maternal Grandfather NC Hypertension Mother MVR, stroke Arthritis Paternal Grandmother Rheum arthritis Paternal Grandmother Colon cancer Neg Hx Ovarian cancer Neg Hx Uterine cancer Neg Hx Relation Name Status Comments Aunt 1 Aunt 2 Brother Alive Father Maternal Grandfather Maternal Grandmother Mother Alive Paternal Grandfather Paternal Grandmother Sister Alive Social History Tobacco Use Types Packs/Day Years Used Date Smoking Tobacco: Never Smokeless Tobacco: Never Alcohol Use Standard Drinks/Week Comments Yes 3 (1 standard drink = 0.6 oz pur e alcohol) Comments Unknown Sex and Gender Information Value Date Recorded Sex Assigned at Not on file Legal Sex Female 11:51 PM EST Gender Identity Not on file Sexual Orientation Not on file Obstetrics History Last Filed Vital Signs Vital Sign Reading Time Taken Comments Blood Pressure 118/68 10/13/2024 1:41 PM EST Pulse 94 10/13/2024 1:41 PM EST Temperature 36.6 ??C (97.8 ??F) 10/13/2024 1:41 PM ES T Respiratory Rate - - Oxygen Saturation 97% 10/13/2024 1:41 PM EST Inhaled Oxygen Concentration - - Weight 59.1 kg (130 lb 6.4 oz) 10/13/2024 1:41 P M EST Height 157.5 cm (5' 2 ) 10/13/2024 1:41 PM EST Body Mass Index 23.85 10/13/2024 1:41 PM EST Plan of Treatment Health Maintenance Due Date Last Done Comments Hepatitis B Vaccines (1 of 3 - 19+ 3-dose series) 1999 Pneumococcal Vaccine: Pediatrics (0 to 5 Years) and At-Risk Patients (6 to 64 Years) (1 of 2 - PCV) 1999 HPV Vaccines (3 - 3-dose series) 11/15/2007 07/23/2007, 05/16/2007 DTaP,Tdap,and Td Vaccines (3 - Td or Tdap) 04/15/2019 04/15/2009, 05/26/2000 Depression Screening 10/29/2022 HIV Screening 10/29/2022 Hepatitis C Screening 10/29/2022 Social Influencers of Health Screening 10/29/2022 COVID-19 Vaccine ( season) 2024 09/30/2021, 12/13/2020, 11/22/2020 Influenza Vaccine (Season Ended) 2025 08/18/2013, 08/16/2010, 02/07/2010, Additional history exists Breast Cancer Screening 01/23/2026 01/23/2024, 09/27 Cervical Cancer Screening: HPV 10/24/2028 10/24/2023 Cholesterol Screening (Lipid Panel) 10/14/2029 10/14/2024, 09/15/2021 HIB Vaccines Aged Out No longer eligi ble based on patient's age to complete this topic Hepatitis A Vaccines Aged Out No long er eligible based on patient's age to complete this topic IPV Vaccines Aged Out No longer eligi ble based on patient's age to complete this topic MMR Vaccines Aged Out No longer eligi ble based on patient's age to complete this topic Meningococcal ACWY Vaccine Aged Out N o longer eligible based on patient's age to complete this topic Meningococcal B Vaccine Aged Out No l onger eligible based on patient's age to complete this topic RSV Immunization Patients Under 20 months Aged Out No longer eligible based on patient's age to complete this topic Varicella Vaccines Aged Out No longer eligible based on patient's age to complete this topic Procedures Procedure Name Priority Date/Time Associated Diagnosis Comments LIPID PANEL WITH REFLEX TO DIRECT LDL Routine 10/14/2024 9:44 AM EST Routine adult health maintenance [facility] SCREENING DIGITAL Routine 01/23/2024 9:21 AM EST Encounter for screening mammogram for malignant neoplasm of breast HPV Routine 10/24/2023 from Last 3 Months or Most Recently Relevant to Health Maintenance Results * (ABNORMAL) Lipid panel with reflex to direct LDL (10/14/2024 9:44 AM EST) Cholesterol 184 0 - 200 mg/dL LAB CHEMISTRY METHOD 10/14/2024 11:19 AM EST [facility] Triglycerides 27 0 - 150 mg/dL LAB CHEMISTRY METHOD 10/14/2024 11:19 AM [facility] HDL 65 >=40 mg/dL LAB CHEMISTRY METHOD 10/14/2024 11:19 AM EST [facility] LDL Calculated 114(H) 0 - 100 mg/dL LAB CHEMISTRY METHOD 10/14/2024 11:19 AM EST [facility] VLDL Cholesterol Compa 5.4 mg/dL LAB CHEMISTRY METHOD 10/14/2024 11:19 AM [facility] Non HDL Chol. (LDL+VLDL) 119 <145 mg/dL LAB CHEMISTRY METHOD 10/14/2024 11:19 AM EST [facility] Chol/HDL Ratio 2.8 0.0 - 4.4 LAB CHEMISTRY METHOD 10/14/2024 11:19 AM EST [facility] Blood Venous blood specimen / Unknown Venipuncture / Unknown 10/14/2024 9:44 AM EST 10/14/2024 10:09 AM EST us Yudy Gordon NP LAB BLOOD ORDERABLES Final Resul t [facility] [address] [place] [address], [place] [phone] * [facility] SCREENING DIGITAL (01/23/2024 9:21 AM EST) Anatomical Region Laterality Modality Mammography 01/23/2024 8:15 AM EST Narrative 01/23/2024 9:21 AM EST [facility] Diagnostic Imaging Department [address] [place] [id number] Patient: ??WENDY GUZMÁN ?/Age/Sex: 1980 - Unit#: ??[id number] ? Location/Status: ??SPDIMAM/REG CLI ? Mnemonic/Ordering Site: ??DIGSC/SPMAM Ordering Physician: ??DEANNE HART MD [facility] Screening Digital - 01/23/24832 Report Status:Signed EXAM: [facility] Screening Digital EXAM DATE AND TIME: 01/23/2024 8:34 AM HISTORY: ??Annual screening COMPARISON: ??10/05/2022, 09/27/2022 TECHNIQUE: Bilateral digital breast tomosynthesis was performed in the CC and MLO projections. Computer aided detection with expressor software 3D 3.1 was employed. TISSUE DENSITY: b. There are scattered areas of fibroglandular density. FINDINGS: No suspicious masses, grouped microcalcifications, or areas of architectural distortion are seen. The skin and vascularity are unremarkable. IMPRESSION: Stable mammographic appearance of the breasts. ??No evidence of malignancy is seen. A negative mammogram in the presence of a clinically suspicious palpable abnormality does not preclude the possibility of malignancy or alter the indications for biopsy. BI-RADS: ??Category 1: Negative RECOMMENDATION(S): 1: Routine screening mammogram BILATERAL in 1 year. 3341F, 7081F Dictating Physician: ??LINNETTE ENAMORADO MD Electronically Signed by: ??LINNETTE ENAMORADO MD Dic Date/Time: ??01/23/24919 Sign date/Time: ??01/23/24920 Procedure Note Linnette Enamorado MD - 07/14/2024 [facility] Diagnostic Imaging Department [address] [place] [address] Patient: WENDY GUZMÁN Cyndi /Age/Sex: 1980 - 43 - F Unit#: [id number] [facility]onic/Ordering Site: [facility] Ordering Physician: DEANNE HART MD [facility] Screening Digital - 01/23/24 - 0833 Report Status:Signed EXAM: [facility] Screening Digital EXAM DATE AND TIME: 01/23/2024 8:34 AM HISTORY: Annual screening COMPARISON: 10/05/2022, 09/27/2022 TECHNIQUE: Bilateral digital breast tomosynthesis was performed in the CCand MLO projections. Computer aided detection with [employer]D Optensity 3D 3.1was employed. TISSUE DENSITY: b. There are scattered areas of fibroglandular density. FINDINGS: No suspicious masses, grouped microcalcifications, or areas ofarchitectural distortion are seen. The skin and vascularity are unremarkable. IMPRESSION: Stable mammographic appearance of the breasts. No evidence of malignancyis seen. A negative mammogram in the presence of a clinically suspicious palpable abnormality does not preclude the possibility of malignancy or alter the indications for biopsy. BI-RADS: Category 1: Negative RECOMMENDATION(S): 1: Routine screening mammogram BILATERAL in 1 year. 3341F, 7025F Dictating Physician: LINNETTE ENAMORADO MD Electronically Signed by: LINNETTE ENAMORADO MD Dic Date/Time: 01/23/24919 Sign date/Time: 01/23/24920 Deanne Hart MD IMG BI PROCEDURES Final Result * Cervical Cancer Screening: HPV (10/24/2023) Cervical Cancer Screening: HPV No interpretation , abstracted Historical Provider HEALTH MAINTENANCE Final Result from Last 3 Months or Most Recently Relevant to Health Maintenance Insurance on file Care Teams Air Traffic Control Equipment Repairer Relationship Specialty Start Date End Date Deanne Hart MD [address] [place] [phone] PCP - General Internal Medicine 11/29/18
== END 2025-03-10 12:19 | disposition home or self-care (01) ==
LOC: HO.HSMS 11:50
PROVIDERS: PCP Internal Medicine; Visit Provider Psychiatry & Neurology Neurology
DX: G24.3 Spasmodic torticollis (principal)
CPT/HCPCS: 64616

== ENCOUNTER → 2025-03-10 11:50 | Outpatient (BNVA) | payer OTHER, SELFPAY | PROVIDERS: PCP Internal Medicine; Visit Provider Psychiatry & Neurology Neurology | DX: G24.3 Spasmodic torticollis (principal) | CPT/HCPCS: 64616; 99211; J0585 ==

== ENCOUNTER 2025-06-09 14:47 | Outpatient (AMB) | payer OTHER, SELFPAY ==
[2025-06-09 15:00] VITALS: BP 90/72; PULSE 77; O2SAT 99; BMI 27.8
--- NOTE | 2025-06-09 15:00 | A.OFFVIS_ITS ---
Vital Signs 06/09/25 15:00 Height 5 ft 2 in Weight 152 lb BMI 27.8 BP 90/72 Blood Pressure Location Rt brachial Position Sitting Pulse 77 Pulse Source Pulse Oximeter Pulse Oximetry (%) 99 Oxygen Delivery Method Room Air Intake Visit Reasons: Botox Intake Note: Patient presents for botox injection. pharmacy supplied Director Compliance Required: No Accompanied by: Self / Same As Patient Allergies Sulfa (Sulfonamide Antibiotics) Allergy (Intermediate, Verified 06/09/25 15:05) hives Medication List - Last Reconciled 06/09/25 by Leena Noble MD albuterol sulfate 90 mcg/actuation 2 puffs inhalation QID fluticasone propionate 50 mcg/actuation 1 spray intranasal DAILY ibuprofen 600 mg PO Q6H PRN methocarbamol 750 mg PO BID norethindrone (contraceptive) 0.35 mg PO DAILY omeprazole 20 mg PO DAILY 30 days prednisone 3 tabs qd X3 days then 2 tabs qd X 3 days 1tab qd for 3 days orally daily; sertraline (Zoloft) 50 mg PO DAILY sumatriptan succinate 50 - 100 mg orally at onset of headache, may repeat in 2 hrs PRN; max 2 tabs per day or 4 tabs/week (may take with Ibuprofen) 30 days HPI Comments Details: 44y/o female comes for treatment of her cervical dystonia ? Side effects including spread of toxin effect, dysphagia, breathing difficulties , bronchitis etc was discussed in detail and the patient agreed to the procedure.An informed consent was obtained ??? Botulinum toxin type A 200units -was diluted with 4 cc of normal saline at a concentration of 25 units in 0.5cc saline. Lot number [id number]- 200 units ??? Muscles injected ??Aurelio? Splenius - 25 units each ??? Aurelio levator 50 units each Aurelio trapezius 25units ? Total used 200 units PFSH Medical History Bruxism Headache GERD (gastroesophageal reflux disease) Surgical History H/O hand surgery S/P cervical spinal fusion Family History Mother COPD (chronic obstructive pulmonary disease) Depression High blood cholesterol Father No problems noted. Social History Household Members: Spouse Alcohol intake: current Alcohol intake frequency: holidays/special occasions only Patient Tobacco Use Status: Never used Tobacco Physical Exam Vital Signs: Last Vital Signs Pulse 77 06/09/25 15:00 BP 90/72 06/09/25 15:00 Pulse Ox 99 06/09/25 15:00 Oxygen Delivery Method Room Air 06/09/25 15:00 BMI result Body Mass Index 27.8 Const Orientation/consciousness: patient oriented x3 HEENT Head: Yes normal to inspection and Yes normocephalic Neck Neck: Yes normal visual inspection and Yes other (left laterocollis, left scalene splenius and trapezius tenderness) Neuro General: patient oriented x3, gait normal, moves all extremities and no focal motor deficits Cranial nerves: Yes CN's II-XII intact bilaterally and Yes Normal facial strength present Office Procedures Botulinum toxin Injection 20941 - Dystonia Procedure code (CPT) selection complete Office Meds onabotulinumtoxinA 200 unit solution for injection Performing Provider: Leena Noble MD Performing Location: [facility] Administered by: Leena Noble MD on 06/09/25 15:31 Dose Route Admin Location Dispensed Lot Number Expiration Date [facility] Utilization Management Nurse 200 unit IM 200 units [id number] ALLERGAN /BOTOX Total Dispensed Waste 200 units 0 % Comments: see hpi Assessment & Plan Assessment & Plan (1) 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
--- OUTSIDE RECORDS SUMMARY | 2025-06-09 16:09 | XMS_ITS ---
Author Name [facility] Organization Unknown Results Test Name/Text Value Interpretation Date Range Source Bacteria Ur Cult SEE NOTE Normal 11/17/2024 QU EST History of Medication Use Medication Directions Dispensed Refills Start Date End Date Stat us nitrofurantoin monohydrate (MACROBID) 100 MG capsule Take 1 capsule (100 mg total) by mouth 2 (two) times a day with meals. Dispense MACROBID. 11/14/2024 11/20/2024 active albuterol (PROVENTIL HFA; VENTOLIN HFA) 108 (90 Base) MCG/ACT inhaler Inhale 2 puffs 4 times daily (every 6 hours) as needed for wheezing. 11/06/2022 active sertraline (ZOLOFT) 50 MG tablet 09/10/2022 active bupropion HCl XL 150 mg 24 hr tablet, extended release TAKE 1 TABLET BY MOUTH EVERY MORNING active bupropion HCl XL 300 mg 24 hr tablet, extended release TAKE 1 TABLET BY MOUTH EVERY MORNING active epinephrine 0.3 mg/0.3 mL injection, auto-injector USE DIRECTED FOR ANAPHYLATIC REACTION CALL 911 IMMEDIATELY AFTER USE active gabapentin 100 mg capsule TAKE 1-3 CAPSULES BY MOUTH EVERY DAY AT BEDTIME active hydroxyzine pamoate 25 mg capsule TAKE 1 TO 2 CAPSULES BY MOUTH AT BEDTIME NEEDED FOR SLEEP active methocarbamol 750 mg tablet TAKE 1 TABLET BY MOUTH TWICE DAILY active nitrofurantoin macrocrystal 100 mg capsule TAKE 1 CAPSULE BY MOUTH TWICE DAILY FOR 7 DAYS active nitrofurantoin monohydrate/macrocrys tals 100 mg capsule TAKE 1 CAPSULE BY MOUTH TWICE DAILY WITH MEALS active norethindrone (contraceptive) 0.35 mg tablet TAKE 1 TABLET BY MOUTH EVERY DAY active prednisone 20 mg tablet TAKE 1 TABLET BY MOUTH TWICE DAILY FOR 7 DAYS active senna 8.6 mg tablet TAKE 1 TABLET BY MOUTH EVERY DAY active sertraline 50 mg tablet TAKE 1 TABLET BY MOUTH DAILY active Allergies Allergen Reaction Severity Comment Documented Date Source Statu s SULFA ANTIBIOTICS HIVES 06/30/[facility] act cam PREDNISONE MYALGIA/MYOSITIS/ ARTHRALGIA/ARTHRI TIS 02/18/2015 [facility] active SULFAMETHOXAZOLE-TRIM ETHOPRIM HIVES 01/21/2013 [facility] active Problems Problem Status Onset Date Problem Type Date of Resoluti on Source Lumbar spondylosis active 2025-05-12 [address] [facility] Dysuria active EncounterDiagnosisAct CCT Acute cystitis without hematuria active EncounterDiagnosisAct H HCCT Encounters Encounter Type Encounter Reason Primary Diagnosis Location Date Ambulatory [facility] 05/21/2025 Ambulatory [facility] 05/12/2025 Ambulatory [facility] 05/12/2025 Ambulatory Dysuria Dysuria [employer] 11/14/2024 Ambulatory Acute pharyngiti s, unspecified [facility] 06/10/2023 Ambulatory Influenza due to unidentified influenza virus with other respiratory manifestations [facility] 11/06/2022 Care Team Organization Name Specialty Phone Email Start Date End Da te Conference [facility] 2024 [employer] DEANNE HART Primary Care 06/10/2023 5 [facility] [employer] Deanne Hart Primary Care 06/10/2023 3 [employer] PCP,No Primary Care 11/06/2022 02/11/2025 [employer] NO PCP Primary Care 11/06/2022 11/06/2022
--- OUTSIDE RECORDS SUMMARY | 2025-06-09 16:09 | XMS_ITS | Encounter Summary ---
Author Organization [facility] Address [address] [place] [address] Care Team Providers Care Digitizer Name Role Phone Deanne Hart MD Primary Care Provider [phone] Reason for Referral * Consultation (Routine) - Closed Specialty Diagnoses / Procedures Referred By Osbaldo lewis Referred To Contact Neurology Diagnoses Spasmodic torticollis Deanne Hart MD [address] [address] Phone: tel: fax: Leena Noble MD [address] [facility] [address] [place] [address] Phone: tel: fax: Referral ID Status Reason Start Date Expiration Date V isits Requested Visits Authorized [id number] Closed Specialty Services Required 06/02/2025 06/02/2026 8 8 Reason for Visit * Reason Onset Date Comments Referral 06/02/2025 Referral to Neur ology Encounter Details Date Type Department Care Team (Late st Contact Info) Description 06/02/2025 Telephone Internal Medicine - [facility] 175 [facility] [address] [place] [address] Deanne Hart MD 175 [facility] [address] [place] [address] Referral (Referral to Neurology) Social History Tobacco Use Types Packs/Day Years Used Date Smoking Tobacco: Never Smokeless Tobacco: Never Alcohol Use Standard Drinks/Week Comments Yes 3 (1 standard drink = 0.6 oz pur e alcohol) SOCIAL Comments Unknown Sex and Gender Information Value Date Recorded Sex Assigned at Not on file Legal Sex Female 11:51 PM EST Gender Identity Not on file Sexual Orientation Not on file documented as of this encounter Progress Notes * Lorelei Hernandez - 06/02/2025 8:29 AM EDT What insurance does the patient have today? Payor: [email or web address]/@[email or web address]@ Referrals cannot be processed if the insurance is not accurate. If the insurance listed above is NO BILLING INFORMATION FOUND FOR THIS ENCOUNTER then the patients correct insurance must be obtainedand registered in [facility] or their referral can not be processed. Name of person calling to request this referral? Rhiannon Referred To Provider (Include first and last name): Leena Noble NPI (if known): [id number] Order/Specialty requested Neurology Chief Complaint (Note: This is not a body part or a procedure): G24.3 Has the patient seen provider for this problem/Dx before? no Referred To Provider Address: [address] [facility] Referred To Provider Referred To Provider Does patient have an appointment scheduled?: yes If yes, what is the date of the appointment?: 06/09/2025 Is this a retro request? no Number of visits requested: 8 Is this appointment related to: MVA or worker compensation? no documented in this encounter Plan of Treatment Upcoming Encounters Date Type Department Care Team ([facility] st Contact Info) Description 07/07/2025 9:30 AM EDT Office Visit Orthopedic Surgery - [facility] [address] [phone] Gayla Chambers MD [address] [phone] Scheduled Referrals Name Type Priority Associated Diagnoses Order Schedule Ambulatory referral to Neurology Outpatient Referral Routine Spasmodic torticollis 1 Occurrences starting 06/02/2025 until 06/02/2026 documented as of this encounter Visit Diagnoses Diagnosis Spasmodic torticollis- Primary documented in this encounter Care Teams Digitizer Relationship Specialty Start Date End Date Deanne Hart MD [address] [phone] PCP - General Internal Medicine 11/29/18 documented as of this encounter
--- OUTSIDE RECORDS SUMMARY | 2025-06-09 16:09 | XMS_ITS | Clinical Summary ---
Author Organization [facility] Address [address] [place] [address] Care Team Providers Care Edge Roller Name Role Phone Deanne Hart MD Primary Care Provider [phone] Allergies Active Allergy Reactions Criticality Noted Date Comments Prednisone Myalgia/Myositis/Art hralg ia/Arthritis Medium 02/18/2015 Sulfa Antibiotics Hives Medium 06/30/2020 Sulfamethoxazole-Trimethopri m Hives High 01/21/2013 Medications sertraline (ZOLOFT) 50 MG tablet 09/10/2022 Active norethindrone (MICRONOR) 0.35 MG tablet Take 1 tablet by mouth daily. 08/21/2022 Active albuterol (PROVENTIL HFA; VENTOLIN HFA) 108 (90 Base) MCG/ACT inhalerIndicatio ns:Influenza Inhale 2 puffs 4 times daily (every 6 hours) as needed for wheezing. 1 each 11/06/2022 Active Active Problems No known active problems Social History Tobacco Use Types Packs/Day Years Used Date Smoking Tobacco: Never Assessed Comments Unknown Sex and Gender Information Value Date Recorded Sex Assigned at Female 06/10/2023 3:44 PM EDT Legal Sex Female 8:49 AM EDT Gender Identity Female 06/10/2023 3:44 PM EDT Sexual Orientation Heterosexual (straight) 06/10 3:44 PM EDT Last Filed Vital Signs Vital Sign Reading Time Taken Comments Blood Pressure 115/84 11/14/2024 4:00 PM EST Pulse 86 11/14/2024 4:00 PM EST Temperature 36.8 C (98.2 F) 11/14/2024 4:00 PM EST Respiratory Rate 18 11/14/2024 4:00 PM EST [...] Pap Smear (Ages 21-65) 2001 Mammogram 2020 COVID-19 Vaccine ( season) 2024 Influenza Vaccine 06/26/2025 08/18/2013, , 08/16/2010, Additional history exists HPV Vaccines Aged Out No longer eligi ble based on patient's age to complete this topic Pneumococcal Vaccine: Pediatric (0-5 Years) and At-Risk Patients (6 to 49 Years) Aged Out No longer eligible based on patient's age to complete this topic Insurance [facility] Care Teams Edge Roller Relationship Specialty Start Date End Date Deanne Hart MD [address] [facility] [address] [place] [address] PCP - General 05/26/23
--- OUTSIDE RECORDS SUMMARY | 2025-06-09 16:09 | XMS_ITS | Clinical Summary ---
Author Organization [facility] Address [address] [place] [address] Care Team Providers Care Forestry Extension Specialist Name Role Phone Deanne Hart MD Primary Care Provider [phone] Allergies Active Allergy Reactions Criticality Noted Date [...] or Tdap) 04/15/2019 04/15/2009 Influenza Vaccine (#1) 2025 3, 08/16/2010, 12/18/2007 Pneumococcal Vaccine Aged Out No long er eligible based on patient's age to complete this topic RSV Ped < 20 months Aged Out No longe r eligible based on patient's age to complete this topic Care Teams Forestry Extension Specialist Relationship Specialty Start Date End Date Deanne Hart MD [address] [id number] PCP - General Internal Medicine 05/08/22
== END 2025-06-09 15:27 | disposition home or self-care (01) ==
LOC: HO.HSMS 14:48
PROVIDERS: PCP Internal Medicine; Visit Provider Psychiatry & Neurology Neurology
DX: G24.3 Spasmodic torticollis (principal)
CPT/HCPCS: 64616

== ENCOUNTER → 2025-06-09 14:47 | Outpatient (BNVA) | payer OTHER, SELFPAY | PROVIDERS: PCP Internal Medicine; Visit Provider Psychiatry & Neurology Neurology | DX: G24.3 Spasmodic torticollis (principal) | CPT/HCPCS: 64616; 99211; J0585 ==

== ENCOUNTER 2025-09-08 11:12 | Outpatient (AMB) | payer OTHER, SELFPAY ==
[2025-09-08 11:18] VITALS: BP 124/72; PULSE 79; O2SAT 99; BMI 27.0
--- NOTE | 2025-09-08 11:18 | A.OFFVIS_ITS ---
Vital Signs 09/08/25 11:18 Height 5 ft 2 in Weight 147 lb 6 oz BMI 27.0 BP 124/72 Blood Pressure Location Rt brachial Position Sitting Pulse 79 Pulse Source Pulse Oximeter Pulse Oximetry (%) 99 Oxygen Delivery Method Room Air Intake Visit Reasons: 3mon Botox follow-up Intake Note: Botox Rebeamer Required: No Accompanied by: Self / Same As Patient Allergies Sulfa (Sulfonamide Antibiotics) Allergy (Intermediate, Verified 09/08/25 11:18) hives Medication List - Last Reconciled 09/08/25 by Leena Noble MD albuterol sulfate 90 mcg/actuation 2 puffs inhalation QID bupropion HCl XL 300 mg PO QAM epinephrine IM DIRECTED fluticasone propionate 50 mcg/actuation 1 spray intranasal DAILY gabapentin 100 - 300 mg PO BEDTIME hydroxyzine pamoate 25 mg PO BID ibuprofen 600 mg PO Q6H PRN methocarbamol 750 mg PO BID norethindrone (contraceptive) 0.35 mg PO DAILY omeprazole 20 mg PO DAILY 30 days sertraline (Zoloft) 50 mg PO DAILY sumatriptan succinate 50 - 100 mg orally at onset of headache, may repeat in 2 hrs PRN; max 2 tabs per day or 4 tabs/week (may take with Ibuprofen) 30 days HPI Comments Details: 44y/o female comes for treatment of her cervical dystonia ? Side effects including spread of toxin effect, dysphagia, breathing difficulties , bronchitis etc was discussed in detail and the patient agreed to the procedure.An informed consent was obtained ??? Botulinum toxin type A 200units -was diluted with 4 cc of normal saline at a concentration of 25 units in 0.5cc saline. Lot number [id number] exp 09/2027- 200 units ??? Muscles injected ??Aurelio? Splenius - 25 units each ??? Aurelio levator 50 units each Aurelio trapezius 25units ? Total used 200 units PFSH Medical History Bruxism Headache GERD (gastroesophageal reflux disease) Surgical History H/O hand surgery S/P cervical spinal fusion Family History Mother COPD (chronic obstructive pulmonary disease) Depression High blood cholesterol Father No problems noted. Social History Household Members: Spouse Alcohol intake: current Alcohol intake frequency: holidays/special occasions only Patient Tobacco Use Status: Never used Tobacco Physical Exam Vital Signs: Last Vital Signs Pulse 79 09/08/25 11:18 BP 124/72 09/08/25 11:18 Pulse Ox 99 09/08/25 11:18 Oxygen Delivery Method Room Air 09/08/25 11:18 BMI result Body Mass Index 27.0 Const Orientation/consciousness: patient oriented x3 HEENT Head: Yes normal to inspection and Yes normocephalic Neck Neck: Yes normal visual inspection and Yes other (left laterocollis, left scalene splenius and trapezius tenderness) Neuro General: patient oriented x3, gait normal, moves all extremities and no focal motor deficits Cranial nerves: Yes CN's II-XII intact bilaterally and Yes Normal facial strength present Office Procedures Botulinum toxin Injection 58969 - Dystonia Procedure code (CPT) selection complete Office Meds onabotulinumtoxinA 200 unit solution for injection Performing Provider: Leena Noble MD Performing Location: [facility] Administered by: Leena Noble MD on 09/08/25 15:42 Dose Route Admin Location Dispensed Lot Number Expiration Date [facility] [employer] Interaction [employer] 200 unit IM 200 units [id number] [employer]ERGAN /BOTOX Total Dispensed Waste 200 units 0 % Comments: see hpi Assessment & Plan Assessment & Plan (1) Spasmodic torticollis: Code(s): G24.3 - Spasmodic torticollis Category: Medical Plan Patient tolerated the procedure well She will call with any side effects discussed side effects continue imitrex 100mg as needed Orders: Orders PT Evaluation and Treatment Today M47.812 - Spondylosis without myelopathy or radiculopathy, cervical region AMB Botulinum toxin Injection Today G24.3 - Spasmodic torticollis Coding Level of Care Code Est Pt Level 1 (77891) Diagnoses Spasmodic torticollis G24.3 CPT Codes Botox Injection - Botox 4: 76234 - Dystonia ([id number])
== END 2025-09-08 11:41 | disposition home or self-care (01) ==
LOC: HO.HSMS 11:12
PROVIDERS: PCP Internal Medicine; Visit Provider Psychiatry & Neurology Neurology
DX: G24.3 Spasmodic torticollis (principal)
CPT/HCPCS: 64616

== ENCOUNTER → 2025-09-08 11:12 | Outpatient (BNVA) | payer OTHER, SELFPAY | PROVIDERS: PCP Internal Medicine; Visit Provider Psychiatry & Neurology Neurology | DX: G24.3 Spasmodic torticollis (principal) | CPT/HCPCS: 64616; 99211; J0585 ==

== ENCOUNTER 2025-11-05 13:18 | Outpatient (AMB) | payer OTHER, SELFPAY ==
--- NOTE | 2025-11-05 13:21 | A.PHYSOV_ITS ---
Intake Visit Reasons: neck pain Intake Note: Patient is a 45 year old female here with neck pain. Allergies Sulfa (Sulfonamide Antibiotics) Allergy (Intermediate, Verified 09/08/25 11:18) мария WILSON Comments Details: History of Present Illness The patient is a 45 year old female presenting with worsening chronic left-sided neck pain, which she reports is now constant and severe enough that she had to call out of work. Previous treatments have included facet injections, which were not helpful, and an occipital nerve block, which helped with upper neck pain that she is not currently experiencing. She has also had trigger point injections without clear benefit as well as left C4-5, C5-6 facet injection on 12/29/2024. Her current medications include Flexeril and gabapentin 300 mg, which she takes about twice a day. She notes significant drowsiness with both gabapentin and Flexeril, and sometimes forgets to take the gabapentin. She was recently switched from Robaxin to Flexeril by an urgent care provider due to concerns about tolerance. She also reports receiving prednisone from urgent care in August and September. The patient has a history of a cervical fusion at C6-7. She had a prior cervical MRI on May 03, 2021, and a more recent one about two weeks prior to the visit, dated November 20, 2025. Pain Description - Location: The pain is located on the left side of the neck and is much more painful than the right side, although the right side can feel more stiff. - Timing: The pain is now constant. - Radiation: The patient reports associated shoulder pain but denies any tingling in her arm. - Impact on Function: The pain was severe enough to cause her to miss work. Results - Cervical Spine MRI (November 20, 2025): - C4-5: Moderate central stenosis and mild right neuroforaminal narrowing with no left-sided narrowing. - C5-6: A broad-based posterior disc bulge, more focal in the left paracentral region, with a central disc osteophyte complex. - C5-6: Findings include moderate central canal stenosis and moderate left neuroforaminal narrowing, which has progressed slightly since the previous study. [facility] Medical History Bruxism Headache GERD (gastroesophageal reflux disease) Surgical History H/O hand surgery S/P cervical spinal fusion Family History Mother COPD (chronic obstructive pulmonary disease) Depression High blood cholesterol Father No problems noted. Social History Household Members: Spouse Alcohol intake: current Alcohol intake frequency: holidays/special occasions only Patient Tobacco Use Status: Never used Tobacco Review of Systems Narrative Review of Systems - Neurological: Denies tingling in the arm. - Musculoskeletal: Reports constant, severe left-sided neck pain, shoulder pain, and shoulder tightness. - Constitutional: Reports significant drowsiness secondary to medication. Physical Exam Exam Exam: Physical Exam Cervical Spine: Examination of the cervical spine, there is no visible swelling or deformity. She is tender to the left upper trapezius to palpation. She has limited range of motion of her cervical spine at end range throughout. Special Tests: Axial Compression test: Negative Spurlings test: Negative Lhermitte's sign is Negative Upper Extremities: Full range of motion bilateral upper extremities. Equal director of emergency nursing strength bilaterally. Neuro: Sensation: Intact to upper extremities bilateral to light touch Strength C5 (Elbow Flexion): 5/5 on the left and 5/5 on the right. C6 (Elbow Ext): 5/5 on the left and 5/5 on the right. C7 (Elbow Ext): 5/5 on the left and 5/5 on the right. C8 (Finger Flex): 5/5 on the left and 5/5 on the right. T1 (Finger Abd/Add): 5/5 on the left and 5/5 on the right. DTR: C5 (Biceps): Left 2 Right 2 C6 (Brachioradialis): Left 1 Right 1 C7 (Triceps): Left 2 Right 2 Trejo sign: Negative No pathologic clonus. No involuntary movement. Assessment & Plan Assessment & Plan (1) Cervical radiculopathy: Code(s): M54.12 - Radiculopathy, cervical region Category: Medical (2) Cervical spondyloarthritis: Code(s): M47.812 - Spondylosis without myelopathy or radiculopathy, cervical region Category: Medical Qualifiers: Spinal osteoarthritis complication: with radiculopathy Qualified Code(s): M47.22 - Other spondylosis with radiculopathy, cervical region Plan Pain Management - Analgesia: The patient is taking gabapentin 300 mg twice daily and Flexeril for her pain, which remains constant. - Prior Interventions: Facet injections and trigger point injections have not provided significant relief. - Adverse Effects: She reports significant drowsiness from both gabapentin and Flexeril. - Activities of Daily Living: The pain has impacted her ability to work, causing her to call out. - Aberrant Drug-Related Behaviors: The patient notes she sometimes forgets to take her gabapentin. Plan Patient was informed and verbally consented to the use of an ambient scribe for clinic note documentation during this visit. 1. Chronic Neck Pain With Cervical Radiculopathy The patient's chronic, now constant, left-sided neck pain is most likely originating from her cervical spine pathology at the C5-6 level. A recent MRI demonstrated progression of disease at this level, with moderate left neuroforaminal narrowing and a left paracentral disc bulge, which correlates with her symptoms. Prior interventions, including facet injections, have not been successful, and conservative management with medications provides incomplete relief and side effects. The plan is to proceed with a left C5-6 transforaminal epidural steroid injection to target the suspected pain generator. This procedure will be performed under sedation at the hospital. A prednisone taper will also be prescribed for short-term symptom management. The patient will follow-up approximately three weeks after the injection to assess her response to the treatment. Discussion Notes I discussed with the patient her worsening left-sided neck pain and reviewed her history of prior failed treatments. We reviewed her most recent cervical MRI, and I explained that the findings at C5-C6, specifically the moderate left neuroforaminal narrowing and disc bulge, have progressed and are the most likely source of her current symptoms. I recommended a left C5-6 transforaminal epidural steroid injection as the next step. I explained that the procedure would be done at the [facility] and that our office would obtain authorization and call her to schedule. I informed her that due to scheduling complexities and the upcoming holiday, the injection would likely not occur until early November. In the interim, I will prescribe a prednisone taper to help manage her pain. The patient understood the plan and consented to proceed. A follow-up appointment will be scheduled for three weeks post-procedure. Patient Instructions - We are scheduling a left C5-6 transforaminal epidural steroid injection (neck injection) for your pain. - This procedure will be done at [facility]. - Our office will call you to schedule the injection once it is approved by your insurance. - Due to scheduling, please expect the procedure to happen in early November. - In the meantime, I am prescribing a course of prednisone pills to help with your pain. - Please schedule a follow-up appointment with me for about 3 weeks after your injection. Medications: New prednisone 3 tabs po for 3 days, 2 tabs po for 3 days, 1 tab po for 3 days 20 mg PO DA RASHID 18 tabs 0RF 9 days M54.12 - Radiculopathy, cervical region Coding Level of Care Code Tele Est Pt Level 4 (97825) Diagnoses Cervical radiculopathy M54.12 Osteoarthritis of spine with radiculopathy, cervical region M47.22 Spinal osteoarthritis complication: with radiculopathy
--- NOTE | 2025-11-05 13:39 | A.PHYSOV ---
Intake Visit Reasons: neck pain Allergies Sulfa (Sulfonamide Antibiotics) Allergy (Intermediate, Verified 09/08/25 11:18) hives [facility] Medical History Bruxism Headache GERD (gastroesophageal reflux disease) Surgical History H/O hand surgery S/P cervical spinal fusion Family History Mother COPD (chronic obstructive pulmonary disease) Depression High blood cholesterol Father No problems noted. Social History Household Members: Spouse Alcohol intake: current Alcohol intake frequency: holidays/special occasions only Patient Tobacco Use Status: Never used Tobacco Assessment & Plan Assessment & Plan (1) Cervical radiculopathy: Code(s): M54.12 - Radiculopathy, cervical region Category: Medical Medications: New prednisone 3 tabs po for 3 days, 2 tabs po for 3 days, 1 tab po for 3 days 20 mg PO DAILY 18 tabs 0RF 9 days M54.12 - Radiculopathy, cervical region Coding Diagnoses Cervical radiculopathy M54.12
== END 2025-11-05 13:39 | disposition home or self-care (01) ==
LOC: HO.HPHYS 13:19
PROVIDERS: PCP Internal Medicine; Visit Provider Physician Assistant
DX: M54.12 Radiculopathy, cervical region (principal)
CPT/HCPCS: 99214

== ENCOUNTER → 2025-11-05 13:18 | Outpatient (BNVA) | payer OTHER, SELFPAY | PROVIDERS: PCP Internal Medicine; Visit Provider Physician Assistant | DX: M47.22 Other spondylosis with radiculopathy, cervical region (principal) | CPT/HCPCS: 99212 ==